=== PATIENT | male | born 1965 | race Hispanic/Latino ===

== ENCOUNTER 2019-01-02 12:55 | Outpatient (CLI) | payer MEDICAID ==
[2019-01-02] MEDS ORDERED: XYLOCAINE TOPICAL 4% TP ONE (13:02)
[2019-01-02] MEDS ORDERED: AD OINTMENT TP SCH (14:00)
== END 2019-01-02 12:56 | disposition home or self-care (01) ==
LOC: WOUND 12:55
PROVIDERS: ATTEND Surgery
DX: E11.621 Type 2 diabetes mellitus with foot ulcer (principal); L97.521 Non-pressure chronic ulcer of other part of left foot limited to breakdown of skin; L84 Corns and callosities; E11.42 Type 2 diabetes mellitus with diabetic polyneuropathy; K21.9 Gastro-esophageal reflux disease without esophagitis; F17.290 Nicotine dependence, other tobacco product, uncomplicated; Z86.718 Personal history of other venous thrombosis and embolism; Z86.711 Personal history of pulmonary embolism; Z68.41 Body mass index [BMI] 40.0-44.9, adult
CPT/HCPCS: 99205; A6250; G0463

== ENCOUNTER 2019-01-16 12:55 | Outpatient (CLI) | payer MEDICAID ==
[2019-01-16] MEDS ORDERED: XYLOCAINE TOPICAL 4% TP NR (13:15)
== END 2019-01-16 12:56 | disposition home or self-care (01) ==
LOC: WOUND 12:55
PROVIDERS: ATTEND Surgery
DX: E11.621 Type 2 diabetes mellitus with foot ulcer (principal); L97.521 Non-pressure chronic ulcer of other part of left foot limited to breakdown of skin; L84 Corns and callosities; E11.42 Type 2 diabetes mellitus with diabetic polyneuropathy; K21.9 Gastro-esophageal reflux disease without esophagitis; F17.290 Nicotine dependence, other tobacco product, uncomplicated; Z86.718 Personal history of other venous thrombosis and embolism
CPT/HCPCS: 99214; G0463